=== PATIENT | male | born 2000 | race Hispanic/Latino ===

== ENCOUNTER 2024-09-08 14:39 | Emergency (ER) | payer BC, MEDICAID ==
[~2024-09-08] VITALS: Ht 175.3 cm; Wt 53.5 kg
[2024-09-08] MEDS: ondanSETRON ODT 4MG TAB SL ONE (15:12)
[2024-09-08] MEDS: ibuPROFEN 600 MG TABLET PO ONE (15:14)
[2024-09-08 15:43] LABS: RAPID GROUP A STREP negative (NEGATIVE)
[2024-09-08 15:46] VITALS: TEMP 98.4
[2024-09-08 15:51] VITALS: BP 127/82; PULSE 102; RESP 16; TEMP 98.4; O2SAT 98
[2024-09-08 15:54] LABS: INFLUENZA TYPE A Negative For Type A (NEGATIVE); INFLUENZA TYPE B Negative For Type B (NEGATIVE)
--- NOTE | 2024-09-08 15:58 | HMCIMG ---
CHEST 1VW HISTORY: Cough COMPARISON: 05/02/2004 FINDINGS: A frontal projection of the chest was obtained. No acute pulmonary infiltrates is seen. The heart is normal in size. All the lines and tubes are again seen in place. No evidence of aortic calcification is seen. IMPRESSION: 1. No acute pulmonary infiltrate is seen.
[2024-09-08 16:03] LABS: COVID19 (SARS ANTIGEN RAPID) POSITIVE FOR SARS AG (NEGATIVE)
[2024-09-08] MEDS ORDERED: ONDA-243 PO (16:27)
--- NOTE | 2024-09-08 16:28 | ERN ---
General Chief Complaint: Cough Stated Complaint: FEVER,COUGHING,VOMIT Time Seen by MD: 14:40 History of Present Illness Initial Comments 24-year-old male who presents for 24 hours of sore throat nausea and fever. He reports body aches. Mild cough. No other symptoms. No sick contacts. No medical conditions. Allergies: Coded Allergies: No Known Allergies (Unverified Allergy, Unknown, 09/08/24) Home Meds Active Scripts Ondansetron (Ondansetron Odt) 4 Mg Tab.rapdis, 1 TAB PO Q6HPRN PRN for nausea/vomiting for 3 Days, #10 TAB 0 Refills Prov:THI LUIS DO 09/08/24 Past Medical History Past Medical History: Asthma, Other Medical History Other: GASTRITIS Past Surgical History: Other Surgical History Other: FINGER Results Laboratory and Microbiology Lab and Micro Result Laboratory Tests Test 09/08/24 14:57 Influenza Type A Antigen Negative For Type A Influenza Type B Antigen Negative For Type B SARS-CoV-2 Antigen (Rapid) POSITIVE FOR SARS AG Group A Streptococcus Rapid negative (NEGATIVE) MDM CC: Fever sore throat cough x2 days Historian: Patient No comorbidities No limitations Differential diagnosis: Viral URI, pneumonia, other. Vital signs: Initially tachycardic and febrile this improved in the ER with treatment Patient received Tylenol Motrin here in the ER Chest x-ray independently interpreted by me shows no acute abnormalities no focal infiltrates SARS positive consistent with the patient's symptoms Plan: DC with symptomatic support recommend PCP follow up. ED Course Orders Procedure Category Date Status Time Rapid (Group A Strep) LAB 09/08/24 Complete 15:01 Covid19 (Sars Antigen LAB 09/08/24 Complete Rapid) 15:01 Influenza Type A & B, LAB 09/08/24 Complete Rapid 15:01 Ibuprofen 600 Mg PHA 09/08/24 Complete Tablet (Motrin) 15:30 Ondansetron Odt 4mg PHA 09/08/24 Complete Tab (Zofran 4mg Odt) 15:30 Chest 1vw RAD 09/08/24 Resulted 15:13 Vital Signs Date Time Temp Pulse Resp B/P (MAP) Pulse Ox O2 Delivery O2 Flow Rate FiO2 09/08/24 15:51 98.4 102 16 127/82 98 Room Air* 0 21 09/08/24 15:14 100.8 09/08/24 15:06 100.8 118 16 130/80 98 Room Air* 0 21 09/08/24 14:49 100.8 121 20 138/84 97 Room Air 0 DX & DISP Disposition: Discharge Departure Impression: Primary Impression: COVID-19 Condition: Stable Scripts Ondansetron (Ondansetron Odt) 4 Mg Tab.rapdis 1 TAB PO Q6HPRN PRN for nausea/vomiting for 3 Days, #10 TAB 0 Refills Prov: THI LUIS DO 09/08/24 Additional Instructions: You have the coronavirus. This is a viral infection that does not require antibiotics. Your chest x-ray is clear. Your oxygen level is stable. Alternate Tylenol (1000 mg) and ibuprofen (600mg) every 4 hours as needed for fever or discomfort. Drink plenty of liquids. I have prescribed ondansetron dissolvable tabs to use as needed prevent vomiting. Please return to the emergency department if you have any concerns. Referrals: Shirlene CEJA MD (PCP) THI LUIS DO Sep 08, 2024 16:28
== END 2024-09-08 16:34 | disposition home or self-care (01) ==
LOC: EDH 14:39
DX: U07.1 COVID-19 (principal); J45.909 Unspecified asthma, uncomplicated
CPT/HCPCS: 71045; 87426; 87804; 87880; 99283